=== PATIENT | female | born 1975 | race Caucasian/White ===

== ENCOUNTER 2019-05-04 07:16 | Day surgery (SDC) | payer OTHER ==
[2019-04-27 12:33] VITALS: BMI 22.5
[2019-05-04] MEDS ORDERED: MIDAZOLAM HCL 2 MG/2 ML SINGLE DOSE VIAL ONE (08:29)
[2019-05-04] MEDS ORDERED: ONDANSETRON 4 MG/2 ML VIAL ONE (08:41)
[2019-05-04] MEDS ORDERED: DEXAMETHASONE SOD PHOSPHATE 4 MG/1 ML VIAL ONE (08:41)
[2019-05-04] MEDS ORDERED: PROMETHAZINE HCL 25 MG/1 ML VIAL IVPUSH PRN (09:23)
[2019-05-04] MEDS ORDERED: oxyCODONE HCL 5 MG TABLET PO PRN ×2 (09:23)
[2019-05-04] MEDS ORDERED: ONDANSETRON 4 MG/2 ML VIAL IVPUSH PRN (09:23)
[2019-05-04 11:41] VITALS: BP 105/66; PULSE 70; TEMP 97.8
--- NOTE | 2019-05-05 18:58 | OP ---
DATE OF OPERATION: 05/04/2019 PREOPERATIVE DIAGNOSIS: Right carpal tunnel syndrome. POSTOPERATIVE DIAGNOSIS: Right carpal tunnel syndrome. OPERATIVE PROCEDURE: Right endoscopic carpal tunnel release. ANESTHESIA: General. COMPLICATIONS: None. ESTIMATED BLOOD LOSS: Minimal. INDICATIONS FOR PROCEDURE: The patient is a 43-year-old female with above findings indicated for operative treatment. Risks, benefits, alternatives were discussed with the patient at length. Proper informed consent was obtained. DESCRIPTION OF PROCEDURE: After proper identification of patient and correct operative site, patient was brought to the operating room and placed supine on the table, prominences well padded. General anesthesia was given. Right upper extremity was prepped and draped in usual sterile fashion. Superficial landmarks were drawn on the skin as Esmarch was used to exsanguinate right upper extremity. Tourniquet was inflated to 250 mmHg. Transverse incision was made proximal to this crease. Incision was taken sharply through the skin, and care was taken to stay ulnar to the palmaris longus tendon. Blunt dissection was performed through the subcutaneous tissues. Antebrachial fascia was divided, and the carpal canal was entered. Hamate finder dilator was used to prepare the canal, and the Micro-Aire endoscopic carpal tunnel release system was inserted to the distal aspect of the transverse carpal ligament. Confirmed visually as well as palpably. At all times throughout the procedure, excellent visualization was achieved, and at no time was any soft tissue allowed to interpose between the blade and the undersurface of the transverse carpal ligament. The blade was deployed, and the transcarpal ligament was released. Using a direct mini open approach, the distal 4 cm of the antebrachial fascia were also divided longitudinally. This provided complete release of the median nerve at the wrist. Wound was irrigated and repaired with 4-0 Monocryl suture. Steri-Strips and sterile dressings were applied. Patient was reversed from anesthesia and brought to the recovery room in stable condition. Johanne [id number]
== END 2019-05-04 11:42 | disposition home or self-care (01) ==
LOC: FASU 07:16
PROVIDERS: ATTEND Orthopaedic Surgery Hand Surgery
PROC: 01N54ZZ Release Median Nerve, Percutaneous Endoscopic Approach (ICD-10-PCS; principal; 2019-05-04 08:53)
DX: G56.01 Carpal tunnel syndrome, right upper limb (principal)
CPT/HCPCS: 84703; 94760